=== PATIENT | male | born 1995 | race Caucasian/White ===

== ENCOUNTER → 2018-08-13 15:13 | Outpatient (CLI) | payer OTHER, SELFPAY ==
[2016-09-09 00:14] VITALS: BMI 25.6
--- NOTE | 2018-08-13 15:27 | RAD_ITS ---
STUDY: X-RAY - LUMBAR SPINE REASON FOR EXAM: Male, 22 years old. Low back pain radiating to right leg. TECHNIQUE: 5 view(s) of the lumbar spine were obtained. COMPARISON: None FINDINGS: Normal lumbar lordosis. There is no substantial scoliosis. There is a normal alignment of the vertebrae. Normal vertebral bodies and endplates. Mild disc space narrowing L4-L5 and L5-S1. The soft tissue structures are unremarkable. RAD/L/S Spine Min 4 Views IMPRESSION: Mild degenerative changes of the lower lumbar spine. Electronically Signed: Harshad Gutierrez MD at 1:39 EDT , Service support ,
== END ==
PROVIDERS: Family Provider Family Medicine; PCP Family Medicine
DX: M51.27 Other intervertebral disc displacement, lumbosacral region (principal); M54.17 Radiculopathy, lumbosacral region
CPT/HCPCS: 72110